=== PATIENT | male | born 1985 | race Hispanic/Latino ===

== ENCOUNTER 2018-06-18 22:29 | Inpatient (IN) | payer SELFPAY ==
[~2018-06-18] VITALS: Ht 170.2 cm; Wt 116.8 kg
[2018-06-18] MEDS ORDERED: NITROGLYCERIN 1GM/1 INCH PACKET TD ONE (23:15)
[2018-06-18] MEDS ORDERED: ASPIRIN 325 MG TABLET ONE (23:15)
[2018-06-18 23:26] LABS: BASOPHILS % (AUTO) 0.7 % (0.0-5.0); EOSINOPHILS % (AUTO) 0.4 % (0.0-8.0); HEMATOCRIT 43.5 % (42-54); LYMPHOCYTES % (AUTO) 21.5 % (21.0-51.0); MEAN CORPUSCULAR HEMOGLOBIN 28.9 pg (27.0-33.0); MEAN CORPUSCULAR HGB CONC 34.7 g/dL (32.0-36.0); MEAN CORPUSCULAR VOLUME 83.2 fL (79-99); NEUTROPHILS % (AUTO) 68.4 % (40.0-77.0); PLATELET COUNT (AUTO) 226 K/uL (130-400); RED BLOOD CELL COUNT(AUTO) 5.23 MIL/uL (4.50-6.20); RED CELL DISTRIBUTION WIDTH 13.3 % (11.0-15.5); WHITE BLOOD COUNT (AUTO) 8.6 K/uL (4.8-10.8)
[2018-06-18 23:38] LABS: POTASSIUM 3.8 mmol/L (3.5-5.1)
[2018-06-18 23:40] LABS: INR 0.98 (0.85-1.15); PARTIAL THROMBOPLASTIN TIME 26.6 SEC (26.3-35.5); PROTHROMBIN TIME 10.3 SEC (9.6-11.6)
[2018-06-18 23:47] LABS: BILIRUBIN,TOTAL 0.3 mg/dL (0.2-1.0); TOTAL PROTEIN, SERUM 7.9 g/dL (6.0-8.3)
[2018-06-19 00:21] LABS: LIPASE 111 U/L (114-286)
[2018-06-19 00:33] LABS: ALCOHOL, BLOOD < 3 mg/dL (0-10)
[2018-06-19] MEDS ORDERED: HYDRALAZINE HCL 20 MG/ML VIAL IV PRN (01:00)
[2018-06-19] MEDS ORDERED: ONDANSETRON HCL 4 MG/2 ML VIAL IV PRN (01:00)
[2018-06-19] MEDS ORDERED: LORAZEPAM 1 MG TABLET PO PRN (01:00)
[2018-06-19] MEDS ORDERED: ACETAMINOPHEN 325 MG TAB PO PRN ×2 (01:00)
[2018-06-19] MEDS: NITROGLYCERIN 1GM/1 INCH PACKET TD SCH ×2 (01:00→09:36)
[2018-06-19 02:30] VITALS: BP 129/76
--- NOTE | 2018-06-19 02:30 | NUR ---
Admission note: Admitted pt to floor per stretcher fully awake and responsive. AOX3. Placed in bed comfortably. VS checked and recorded (see flow chart.) Assessment done ( see flow sheet). Oriented to room and use of call light. Procedures and Policies explained. Verbalized understanding. Telemetry attached at bedside with NSR result. Plan of care initiated as ordered. Denies feeling of discomfort. No apparent distress noted. Cared for and needs attended.
[2018-06-19 04:51] LABS: TROPONIN I 0.68 ng/mL (0.00-0.06)
[2018-06-19 07:35] LABS: TROPONIN I 0.64 ng/mL (0.00-0.06)
[2018-06-19 07:50] VITALS: BP 150/96
[2018-06-19] MEDS ORDERED: ASPIRIN 325 MG TABLET PO SCH (09:00)
[2018-06-19] MEDS ORDERED: ENOXAPARIN SODIUM 30 MG/0.3 ML SQ SCH (09:00)
[2018-06-19] MEDS ORDERED: FAMOTIDINE/PF 20 MG/2 ML VIAL IV SCH (09:00)
[2018-06-19] MEDS ORDERED: METOPROLOL TARTRATE 25 MG TAB PO SCH (09:00)
[2018-06-19] MEDS ORDERED: ATORVASTATIN CALCIUM 20 MG TABLET PO SCH (10:30)
[2018-06-19] MEDS ORDERED: AMLODIPINE BESYLATE 5 MG TAB PO SCH (10:30)
--- NOTE | 2018-06-19 10:47 | NUR ---
LIO Sanders met with pt and DILLAN Griffin [id number]. Pt is independent, drives, works, no DME or HH. Pt has no PCP or rx coverage. Pt states he takes no daily meds. Addendum: 06/19/18 at 1050 by BROOKE HORN SS Amended: Links added.
[2018-06-19] MEDS ORDERED: AEC81 PO (10:48)
[2018-06-19] MEDS ORDERED: AMLO5TAB4 PO (10:48)
[2018-06-19] MEDS ORDERED: PRAV40TA3 PO (10:48)
[2018-06-19 10:58] LABS: HEMOGLOBIN A1C 6.1 % (4.0-6.0)
[2018-06-19 11:17] VITALS: BP 138/97
[2018-06-19 12:47] LABS: TROPONIN I 0.65 ng/mL (0.00-0.06)
--- NOTE | 2018-06-19 15:45 | NUR ---
DISCHARGE INSTRUCTIONS PROVIDED WITH FOLLOW-UP RECOMMENDATION, SMOKING CESSATION PACKET WAS GIVEN WITH EDUCATION AND THE PATIENT VOICED UNDERSTANDING. IV ACCESS WAS REMOVED AND THE PATIENT LEFT THE UNIT AMBULATORY IN STABLE CONDITION ACCOMPANIED BY FAMILY.
== END 2018-06-19 15:30 | disposition home or self-care (01) | DRG 918 ==
LOC: EDH 22:29 → EDHIP 22:30 → 3BH 06-19 02:30
PROVIDERS: ADMIT Internal Medicine; ATTEND Internal Medicine
DX: T40.5X1A Poisoning by cocaine, accidental (unintentional), initial encounter (principal); Z68.41 Body mass index [BMI] 40.0-44.9, adult; I20.1 Angina pectoris with documented spasm; F17.210 Nicotine dependence, cigarettes, uncomplicated; F14.90 Cocaine use, unspecified, uncomplicated; R74.8 Abnormal levels of other serum enzymes; E66.01 Morbid (severe) obesity due to excess calories; R03.0 Elevated blood-pressure reading, without diagnosis of hypertension; Y92.89 Other specified places as the place of occurrence of the external cause
CPT/HCPCS: 36415; 71045; 80053; 80061; 82550; 83036; 83690; 83874; 84484; 85025; 85610; 85730; 93005; G0378; G0480; J1650; J3490